=== PATIENT | male | born 1980 | race Caucasian/White ===

== ENCOUNTER 2018-09-28 13:42 | Emergency (ER) | payer SELFPAY ==
[2018-09-28 14:00] VITALS: BP 108/66; PULSE 88; TEMP 98.6; BMI 24.3
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
== END 2018-09-28 15:25 | disposition home or self-care (01) ==
LOC: JERFT 13:42
DX: M54.5 Low back pain (principal); V43.52XA Car driver injured in collision with other type car in traffic accident, initial encounter; Y92.488 Other paved roadways as the place of occurrence of the external cause; Y93.89 Activity, other specified; Y99.8 Other external cause status
CPT/HCPCS: 99281-25